=== PATIENT | male | born 1980 | race Two or more races ===

== ENCOUNTER 2024-01-28 08:15 | Outpatient (RCR) | payer BC, SELFPAY | END 2024-05-27 23:59 | disposition home or self-care (01) | PROVIDERS: Visit Provider Nurse Practitioner Family | DX: R10.2 Pelvic and perineal pain (principal); R35.0 Frequency of micturition; Z51.89 Encounter for other specified aftercare | CPT/HCPCS: 97110; 97140; 97162 ==

== ENCOUNTER 2025-08-04 08:54 | Emergency (ER) | payer BC, SELFPAY ==
--- OUTSIDE RECORDS SUMMARY | 2025-08-04 08:58 | XMS_ITS | Clinical Summary ---
Author Organization [facility] Address [address] [place] [id number] Care Team Providers Care Ultrasound Technologist Sonographer Name Role Phone Pennie Reyes MD Primary Care P roshabnamder Allergies No known active allergies Medications escitalopram oxalate (LEXAPRO) 20 mg tabletIndicatio ns:Generalized anxiety disorder Take 1 Tablet (20 mg) by mouth once daily in the morning. 90 Tablet 3 5 Active tiZANidine 2 mg tabletIndicatio ns:Muscle tension pain Take 1-2 Tablets (2-4 mg) by mouth every 8 hours if needed for Muscle Spasm. Take 30 min before PT appointment to help with muscle tension 15 Tablet 5 Active omeprazole (PRILOSEC) 20 mg Delayed-Release capsuleIndicati ons:Cough, unspecified type Take 1 Capsule (20 mg) by mouth once daily before a meal. 90 Capsule 1 5 Active estradioL (ESTRACE) 2 mg tabletIndicatio ns:Gender dysphoria Take 1 Tablet (2 mg) by mouth two times daily. 180 Tablet 1 5 Active estradioL (ESTRACE) 2 mg tabletIndicatio ns:Gender dysphoria Take 1 Tablet (2 mg) by mouth once daily. 90 Tablet 1 5 025 Discontin ued(Reord er (E-cancel not sent)) estradioL (ESTRACE) 2 mg tabletIndicatio ns:Gender dysphoria Take 1 Tablet (2 mg) by mouth once daily. 90 Tablet 5 025 Discontin ued(*Medi cation adjustmen t) Active Problems Problem Noted Date Diagnosed Date Generalized anxiety disorder 08/09/2024 [id number] transgender person 06/24/2023 Overview (06/24/2023): Should have mammograms starting at age 50 and after 5-10 years of hormone therapy Stage 2 chronic kidney disease 06/24/2023 Encounters Date Type Department Care Team Description 08/04/2025 8:35 AM SENIOR MEDICAL TRANSCRIPTIONIST Office Visit [address] [address] Vee Stark PA Gi Problem (feeling a blockage, cannot pass stool since yesterday, feeling urge to go with no success, having pain around anus ) 08/04/2025 Travel 07/27/2025 2:30 PM CDT Ancillary Procedure [address] [address] 07/27/2025 2:00 PM CDT Ancillary Procedure [address] [address] 07/27/2025 Travel 07/19/2025 3:40 PM CDT Office Visit [address] [address] Nancy Mccallum, Breast Problem (two weeks of right breast tenderness); Throat Problem (Sore throat for a few days.); Results (Discussion of lab results.) 07/19/2025 Travel 07/14/2025 7:00 AM CDT Orders Only [address] [address] [place] <No scans attached> 07/14/2025 Travel from Last 3 Months Immunizations Immunization Administration Dates Next Due COVID-19 VACCINE SPIKEVAX (M ODERNA 50MCG/0.5ML) 12YO+ PFS 06/24/2024 COVID-19 vaccine ([employer]-Bio NTech 30mcg/0.3mL) 12YO+ BIVALENT PF, MDV 07/16/2022 COVID-19 vaccine (Pfizer-BioNTech 30mcg/0.3mL) P MD MayraV 12/28/2020,12/07/2020 INFLUENZA, IIV3 PF (AGE >= 6 MO) 06/29/2025,05/30 Imovax 05/25/2011 Influenza Virus, Unspecified 07/17/2021 Influenza, IIV3 (Age >=3 years) 07/17/2021 Influenza, IIV4 06/24/2023,07/24/2022 Rabies Vaccine 05/14/2011,05/11/2011 Tdap 06/24/2023 Family History Medical History Relation Name Comments Good Health Brother 1 Good Health Brother 2 Anxiety disorder Child Hepatitis Mother possibly hepati tis B Other cancer Mother possibly ovaria n Relation Name Status Comments Brother 1 Alive Brother 2 Alive Child Alive Father Alive Mother Alive Social History Tobacco Use Types Packs/Day Years Used Date Smoking Tobacco: Never Smokeless Tobacco: Never Tobacco Cessation:Counseling Given: Yes Alcohol Use Standard Drinks/Week Comments Not Currently 0 (1 standard drink = 0.6 oz pur e alcohol) 2 x year PHQ-2 Answer Date Recorded PHQ-2 TOTAL SCORE 1 11/09/2024 Social Connections Answer Date Recorded Do you often feel lonely or isolated from those around you? 0 04/13/2025 Alcohol Use Answer Date Recorded How often do you have a drink containing alcohol ? 1 07/19/2025 How many drinks containing a lcohol do you have on a typical day when you are drinking? 0 07/19/2025 How often do you have five or more drinks on one occasion? 0 07/19/2025 Financial Resource Strain Answer Date R ecorded Difficulty of Paying Living Expenses 3 04/13/2025 Difficulty of Paying Living Expenses Not on file 04/13/2025 Food Insecurity Answer Date Recorded Do you worry your food will run out before you are able to buy more? 1 04/13/2025 Transportation Needs Answer Date Record ed Does lack of transportation keep you from medica l appointments? 1 04/13/2025 Does lack of transportation keep you from work, meetings or getting things that you need? 1 04/13/2025 Housing Stability Answer Date Recorded What is your housing situation today? 1 04/13/2025 Utilities Answer Date Recorded Do you have trouble paying f or utilities (for example, heat, electricity, water, phone)? 1 04/13/2025 Sex and Gender Information Value Date Recorded Sex Assigned at Male 07/26/2021 11:43 AM CDT Legal Sex Female 11:25 AM CDT Gender Identity Female 06/19/2021 10:03 AM CDT Sexual Orientation Not on file Obstetrics History Last Filed Vital Signs Vital Sign Reading Time Taken Comments Blood Pressure 127/86 08/04/2025 8:09 AM SENIOR MEDICAL TRANSCRIPTIONIST Pulse 82 08/04/2025 8:09 AM SENIOR MEDICAL TRANSCRIPTIONIST Temperature 37.2 C (98.9 F) 07/19/2025 3:52 PM CDT Respiratory Rate 16 09/05/2021 9:21 AM SENIOR MEDICAL TRANSCRIPTIONIST Oxygen Saturation 97% 08/04/2025 8:09 AM SENIOR MEDICAL TRANSCRIPTIONIST Inhaled Oxygen Concentration - - Weight 74.8 kg (165 lb) 08/04/2025 8:09 AM SENIOR MEDICAL TRANSCRIPTIONIST Height 166.5 cm (5' 5.55) 07/19/2025 3:52 PM CD T Body Mass Index 27 07/19/2025 3:52 PM CDT Plan of Treatment Upcoming Encounters Date Type Department Care Team (Late st Contact Info) Description 10/20/2025 8:20 AM SENIOR MEDICAL TRANSCRIPTIONIST Office Visit [facility] [address] [place] [address] Gwen Grant MD [address] [place] [address] Health Maintenance Due Date Last Done Comments Hepatitis B series for 19+ (1 of 3 - 19+ 3-dose series) 1999 HPV series for age 9-45 (1 - 3-dose SCDM series) 2007 HPV series for age 9-45 (1 - 3-dose SCDM series) 2007 Depression screening for age 12+ 11/09/2025 11/09/2024, 06/17/2024, 06/24/2023, Additional history exists BMI (ht and wt on same day) for age 18+ 07/19/2026 07/19/2025, 10/09/2023, 06/24/2023, Additional history exists Lipids for age 35-44 02/21/2028 02/20/2023, 10/14/19 22 Tetanus booster 06/24/2033 06/24/2023 Pap test for age 21-65 12/21/2039 Postp oned from 2001 (Other) RSV vaccine for adults or (1 - 1-dose 75+ series) 2055 HIV for age 15-65 Completed 06/24/2023 Hepatitis C screening for age 18-79 Completed 06/24/2023 Influenza Vaccine Completed 06/29/2025, , 06/24/2023, Additional history exists Pneumococcal series for age 6-49 Aged Out No longer eligible based on patient's age to complete this topic Procedures Procedure Name Priority Date/Time Associated Diagnosis Comments US BREAST UNILATERAL RIGHT LIMITED AKOSUA 07/27/2025 2:22 PM CDT Breast pain, right XR MAMMO PRATEEK BILAT DIAG AKOSUA 07/27/2025 2:14 PM CDT Breast pain, right THROAT RAPID STREP ONLY CLINIC Routine 07/19/2025 4:05 PM CDT Sore throat ESTRADIOL Routine 07/14/2025 7:09 AM CDT Gender dysphoria ANTI HIV 1/2 Routine 06/24/2023 8:51 AM CDT Screening for HIV (human immunodeficiency virus) ANTI HCV Routine 06/24/2023 8:51 AM CDT Need for hepatitis C screening test LIPID PANEL Routine 02/20/2023 8:54 AM CDT Current use of estrogen therapy from Last 3 Months or Most Recently Relevant to Health Maintenance Results * US BREAST UNILATERAL RIGHT LIMITED (07/27/2025 2:22 PM CDT) Anatomical Region Laterality Modality BREASTS, Breast Right Right Ultrasound Narrative 07/27/2025 3:38 PM CDT For Patients: As a result of the Cures Act, medical imaging exams and procedure reports are released immediately into your electronic medical record. You may view this report before your referring provider. If you have questions, please contact your health care provider. RIGHT BREAST ULTRASOUND, 07/27/2025 PLEASE SEE [id number] FOR DIGITAL BILATERAL MAMMOGRAM SAME DAY. us Nancy Mccallum DO US Final Resu lt * XR MAMMO PRATEEK BILAT DIAG (07/27/2025 2:14 PM CDT) Anatomical Region Laterality Modality BREASTS, Breast Left, Breast Right Bilateral Mammography 07/27/2025 2:37 PM CDT Impressions 07/27/2025 3:38 PM CDT No evidence of malignancy. BILATERAL fibroglandular tissue, [id number]. RECOMMENDATIONS: Clinical follow-up. If patient is currently on hormone treatment and has been for more than five consecutive years, then would consider screening mammograms every 2 years. Results and recommendations were discussed with the patient at the time of the exam. BI-RADS Category 2: Benign Dictated by: Tahir Bush MD @07/27/2025 2:37:39 PM/corin PATIENTS: You will also receive a letter with your examination results in an easy to read format. If you have questions about your results, please contact your referring provider. Narrative 07/27/2025 3:38 PM CDT For Patients: As a result of the Cures Act, medical imaging exams and procedure reports are released immediately into your electronic medical record. You may view this report before your referring provider. If you have questions, please contact your health care provider. DIGITAL DIAGNOSTIC BILATERAL MAMMOGRAM USING TOMOSYNTHESIS AND COMPUTER-AIDED DETECTION, 07/27/2025 RIGHT BREAST ULTRASOUND, 07/27/2025 CLINICAL HISTORY: RIGHT breast pain. COMPARISON: None. TECHNIQUE: Digital BILATERAL mammogram in four projections with computer-aided detection. Tomosynthesis was used in this interpretation. Real-time ultrasound imaging of RIGHT breast with imaging documentation. BREAST COMPOSITION: The breasts are heterogeneously dense, which may obscure small masses. FINDINGS: 3D CC/MLO BILATERAL mammogram images submitted. BILATERAL fibroglandular tissue is present without architectural distortion. Fibroglandular tissue is more prominent on the RIGHT. No adenopathy or suspicious calcifications. Targeted RIGHT breast ultrasound performed in the area of concern at 12 o'clock 1 cm from the nipple. Normal fibroglandular tissue is present. No fibrocystic change or mass. us Nancy Mccallum DO MAMMO Final Resu lt * THROAT RAPID STREP ONLY CLINIC (07/19/2025 4:05 PM CDT) Pathologist [facility] POC, GROUP A STREP NOT DETECTED NOT DETECTED 07/19/2025 4:29 PM CDT [facility] Comment: The [employer] [place] [employer] recommends that a throat culture be performed if a rapid group A streptococcus assay yields a negative result. [facility] recommends Streptococcus, Group A culture. Throat SPECIMEN FROM THROAT / Unknown Non-Blood / Unknown 07/19/2025 4:05 PM CDT 07/19/2025 4:11 PM CDT us Nancy Mccallum DO MICROBIOLOGY Final Resu lt Provender [facility] [address] [place] [address], [place] [phone] [facility] [address] [place] [address], [place] [phone] * ESTRADIOL (07/14/2025 7:09 AM CDT) [facility] ESTRADIOL 50 pg/mL 07/15/2025 8:39 AM CDT Provender Comment: Reference Range Female: Follicular Phase: 30-144 Mid-Cycle: 64-357 Luteal Phase: 56-214 Postmenopausal: < or = 31 Reference range established on post-pubertal patient population. No pre-pubertal reference range established using this assay. For any patients for whom low Estradiol levels are anticipated (e.g. males, pre-pubertal children and hypogonadal/post-menopausal females), the [facility] Estradiol, Ultrasensitive, LCMSMS assay is recommended (order code [id number]). Please note: patients being treated with the drug fulvestrant (Faslodex(R)) have demonstrated significant interference in immunoassay methods for estradiol measurement. The cross reactivity could lead to falsely elevated estradiol test results leading to an inappropriate clinical assessment of estrogen status. [facility] order code [id number], Ultrasensitive LC/MS/MS demonstrates negligible cross reactivity with fulvestrant. Blood BLOOD SPECIMEN / Unknown [facility] / Unknown 07/14/2025 7:09 AM CDT 07/14/2025 7:09 AM CDT Nancy Mccallum DO SEND OUTS Final Resu lt Performing Organization Address City/[facility]/ZIP Co de Phone Number Provender [address] [address], [place] [phone] * ANTI HCV (06/24/2023 8:51 AM CDT) HEPATITIS C ANTIBODY Non-Reacti ve Non-React jeff 06/24/2023 9:00 PM CDT [facility] Comment:Please note, per www .CDC.gov: If a patient is known to be at high risk of HCV infection, or is symptomatic, and the physician's suspicion of HCV infection is high, HCV RNA testing is often employed and is of diagnostic value, even after an initial negative anti-HCV test result. Blood BLOOD SPECIMEN / Unknown Venipuncture / Unknown 06/24/2023 8:51 AM CDT 06/24/2023 8:54 AM CDT Pennie Reyes MD SEND OUTS Final Result [facility] [address] [place] [address], * ANTI HIV 1/2 [33799.0] (06/24/2023 8:51 AM CDT) HIV-1/HIV-2 SCREEN Non-Reacti ve Non-Reacti ve 06/24/2023 9:03 PM CDT [facility] Comment:HIV-1 p24 and HIV-1/ HIV-2 Ab Not Detected. Blood BLOOD SPECIMEN / Unknown Venipuncture / Unknown 06/24/2023 8:51 AM CDT 06/24/2023 8:54 AM CDT Pennie Reyes MD SEND OUTS Final Result [facility] [address] [place] [address], [place] * (ABNORMAL) LIPID PANEL (02/20/2023 8:54 AM CDT) [facility] CHOLESTEROL,TOTAL 140 100 - 199 mg/dL 02/20/2023 10:08 AM [facility] TRIGLYCERIDES 122 <150 mg/dL 02/20/2023 10:08 AM [facility] HDL CHOLESTEROL 40(L) >40 mg/dL 10:08 AM [facility] NON-HDL CHOLESTEROL 100 <145 mg/dl 02/20/2023 10:08 AM [facility] CHOL/HDL RATIO 3.50 <4.50 02/20/2023 10:08 AM [facility] LDL CHOLESTEROL 76 <=130 mg/dL 02/20/2023 10:08 AM [facility] VLDL CHOLESTEROL 24 <=30 mg/dL 02/20/2023 10:08 AM [facility] PROVIDER ORDERED STATUS RANDOM 02/20/2023 10:08 AM [facility] Blood BLOOD SPECIMEN / Unknown Venipuncture / Unknown 02/20/2023 8:54 AM CDT 02/20/2023 8:56 AM CDT us Kain Simons MD CHEMISTRY Final Result [facility] [address] [place] [address] from Last 3 Months or Most Recently Relevant to Health Maintenance Insurance [facility] [place] Care Teams Ultrasound Technologist Sonographer Relationship Specialty Start Date End Date Pennie Reyes MD [address] [place] [address] [place] ascencio [id number] PCP - General Family Practice 06/17/24
[2025-08-04 09:00] VITALS: BP 123/80; PULSE 76; RESP 16; TEMP 36.4; O2SAT 99; BMI 28.3
--- NOTE | 2025-08-04 09:23 | CRLHL7_ITS ---
For Patients: As a result of the Century Cures Act, medical imaging exams and procedure reports are released immediately into your electronic medical record. You may view this report before your referring provider. If you have questions, please contact your health care provider. Indication: Abdominal pain, constipation Technique: 2 AP views of the abdomen. Comparison: None. Findings: Moderate stool burden is seen throughout the colon. 6.7 centimeter rectal stool ball. Nonobstructive bowel gas pattern. No large pneumoperitoneum. Visualized lung bases are clear. Impression: Moderate stool burden is seen throughout the colon. 6.7 centimeter rectal stool ball. Nonobstructive bowel gas pattern. Dictated by Adrian Rhodes MD @ 08/04/2025 10:00:14 AM (Electronically Signed)
--- NOTE | 2025-08-04 09:43 | ED.GENADULT ---
HPI - General Adult General Chief complaint: Abdominal Pain Stated complaint: bowel obstruction Time Seen by Provider: 08/04/25 09:15 Source: patient Mode of arrival: ambulatory Limitations: no limitations History of Present Illness HPI narrative: 44-year-old transgender female presenting today with rectal pain and abdominal pain. States that yesterday she was unable to have a bowel movement and had to strain quite a bit. Developed rectal pain in the process. Went to the clinic today and did not really allow the provider to touch her secondary to pain so she was sent here for evaluation. Since last night she has also developed abdominal discomfort located centrally. She does not know the last time was that she passed gas. There is no increased urinary frequency, urgency or dysuria. No nausea or vomiting. No fevers or chills. Past surgical history includes an orchiectomy secondary to gender affirming care. No intra-abdominal surgery. Related Data Home Medications ?Medication ?Instructions ?Recorded ?Confirmed escitalopram oxalate 20 mg tablet 20 mg PO QAM 08/04/25 08/04/25 estradiol 2 mg tablet 2 mg PO BID 08/04/25 08/04/25 omeprazole 20 mg capsule,delayed 20 mg PO DAILY 08/04/25 08/04/25 release Allergies Allergy/AdvReac Type Severity Reaction Status Date / Time No Known Drug Allergies Allergy Verified 08/04/25 09:02 Review of Systems Status of ROS: Reports: 10 or more systems reviewed and unremarkable except as noted in History and below [facility] Social History Smoking Status: Never smoker How often do you have a drink containing alcohol: monthly or less AUDIT-C Alcohol total score: 1 Non-prescribed substance use: denies use Exam Narrative: Exam Narrative: Well-nourished well-developed patient in no acute distress. Alert and oriented. Answers questions appropriately. Mood and affect are appropriate. Thoughts are goal oriented and rational. No tangential or magical thinking noted. Patient speaks in full sentences without needing to catch her breath. HEENT: Normocephalic atraumatic. Pupils are equally round reactive to light. Extraocular muscles are intact. Conjunctivae are moist without any icterus noted. Moist mucous membranes. Cardiovascular: Heart is regular rate and rhythm S1 and S2 are present without any murmurs. Lungs: Clear to auscultation bilaterally no wheezes rhonchi or rales are appreciated. Patient takes deep breaths without any discomfort. Abdomen: Slightly distended, normal bowel sounds. Diffuse discomfort. Extremities: Bilateral lower extremities are without edema. Normal DP and PT pulses. Skin: Well perfused without any obvious rashes. Rectal: Normal rectal tone. No swelling, erythema or fluctuance consistent with abscess formation. No hemorrhoids are present. There is no bleeding. There are no fissures visualized. However, patient becomes acutely uncomfortable with light palpation to the area. Const: Vital Signs, click to edit/add: Vital Signs - 24 hr 08/04/25 09:00 08/04/25 10:21 08/04/25 11:10 Temperature 97.6 F Pulse Rate 76 Pulse Rate [Pulse Oximeter] 76 Respiratory Rate 16 16 Blood Pressure [Ri ght Upper Arm] 123/80 Pulse Oximetry 99 94 94 Oxygen Delivery Me thod Room Air Course Course ED Course: IV established and labs were drawn. Flat and upright x-ray is ordered. Blood work unremarkable. UA unremarkable. X-ray showing moderate stool burden with a 6.7 cm rectal stool ball. No evidence of obstruction. At this time, patient was given Dilaudid, Ativan and topical lidocaine and a rectal disimpaction was attempted. Rectal ball was too far up the rectum for manual disimpaction. We therefore attempted to bring that down by doing a tap water enema. It did not make a difference. At this time discussed doing an aggressive top down clean now for the next 3 days. Vital Signs Vital signs: Initial Vital Signs Temperature 97.6 F 08/04/25 09:00 Temperature Source Temporal Artery Scan 08/04/25 09:00 Pulse Rate 76 08/04/25 09:00 Pulse Rhythm Regular 08/04/25 09:00 Respiratory Rate 16 08/04/25 09:00 Blood Pressure 123/80 08/04/25 09:00 Blood Pressure Mean 94 08/04/25 09:00 Blood Pressure Position Sitting 08/04/25 09:00 Pulse Oximetry 99 08/04/25 09:00 Oxygen Delivery Method Room Air 08/04/25 09:00 Vital Signs Temperature 97.6 F 08/04/25 09:00 Pulse Rate 76 08/04/25 09:00 Respiratory Rate 16 08/04/25 09:00 Blood Pressure 123/80 08/04/25 09:00 Pulse Oximetry 99 08/04/25 09:00 Oxygen Delivery Method Room Air 08/04/25 09:00 Temperature 97.6 F 08/04/25 09:00 Pulse Rate 76 08/04/25 11:10 Respiratory Rate 16 08/04/25 11:10 Blood Pressure 123/80 08/04/25 09:00 Pulse Oximetry 94 08/04/25 11:10 Oxygen Delivery Method Room Air 08/04/25 09:00 Medications Administered Medications: Generic Name Dose Route Start Last Admin Trade Name Freq PRN Reason Stop Dose Admin Lorazepam 0.5 mg 08/04/25 11:55 08/04/25 11:59 Lorazepam 2 Mg/Ml Inj IVP 0.5 mg Q1H PRN Administration Discontinued Medications Generic Name Dose Route Start Last Admin Trade Name Freq PRN Reason Stop Dose Admin Hydromorphone HCl 0.5 mg 08/04/25 10:21 08/04/25 10:44 Hydromorphone 0.5 Mg/0.5 Ml Inj IVP 08/04/25 10:22 0.5 mg ONCE ONE Administration Lidocaine HCl 6 ml 08/04/25 10:21 08/04/25 10:54 Lidocaine Hcl 2 % Jelly (Top) Sterile TOPICAL 08/04/25 10:22 6 ml ONCE ONE Administration Lorazepam 0.5 mg 08/04/25 10:21 08/04/25 10:45 Lorazepam 2 Mg/Ml Inj IVP 08/04/25 10:22 0.5 mg ONCE ONE Administration Medical Decision Making MDM Narrative Medical decision making narrative: 44-year-old with constipation. Oral treatment will be prescribed for the next 3 days. Patient may need to return to the ER for manual disimpaction. Patient's blood work is unremarkable, he does not appear ill. I do not think we are dealing with something such as a toxic megacolon. Lab Data Labs: Lab Results 08/04/25 08/04/25 Range/Units 09:35 10:27 WBC 7.14 (4.50-11.00) K/uL RBC 4.53 (4.30-5.90) m/uL Hgb 13.7 (13.5-17.5) gm/dL Hct 38.6 (37.0-53.0) % MCV 85 (80-100) fL MCH 30 (26-34) pg MCHC 36 (32-36) gm/dL RDW Coeff of Miki 12.6 (11.5-15.5) % Plt Count 262 (140-440) K/uL Neut % (Auto) 76.6 H (42.0-72.0) % Lymph % (Auto) 14.6 L (20-44) % Tift % (Auto) 7.4 (0.0-11.0) % Eos % (Auto) 0.6 (0.0-7.0) % Baso % (Auto) 0.7 (0.0-3.0) % Neut # (Auto) 5.50 (1.7-7.0) K/uL Lymph # (Auto) 1.00 (0.90-2.90) K/uL Tift # (Auto) 0.50 (0.00-0.90) K/UL Eos # (Auto) 0.04 (0.00-0.50) K/uL Baso # (Auto) 0.05 (0.00-0.30) K/uL Abs Immat Gran (auto) 0.01 (0.00-0.30) K/uL Imm/Tot Granulo (auto) 0.1 % Sodium 133 L (135-149) mmol/L Potassium 4.1 (3.6-5.1) mmol/L Chloride 97 (96-114) mmol/L Carbon Dioxide 27 (20-32) mmol/L Anion Gap 9 (7-15) mEq/L BUN 17 (5-24) mg/dL Creatinine 0.9 (0.5-1.5) mg/dL Estimated Creat Clear 87.70 Estimated GFR 108 ml/min Glucose 107 (60-115) mg/dL Lactate 1.0 (0.5-1.9) mmol/L Calcium 8.9 (8.4-10.6) mg/dL Total Bilirubin 0.8 (0.1-1.5) mg/dL Direct Bilirubin 0.2 (0.0-0.5) mg/dL AST 30 (12-35) U/L ALT 31 (4-50) U/L Alkaline Phosphatase 69 (40-150) U/L C-Reactive Protein 1.0 (0.5-1.0) mg/dL Total Protein 7.6 (6.0-8.3) g/dL Albumin 4.4 (3.3-5.0) g/dL Lipase 64 (23-300) U/L Procalcitonin 0.05 (<0.50) ng/mL Urine Color Yellow (Yellow) Urine Appearance Clear (Clear) Urine pH 6.5 (5.0-8.5) Ur Specific [place] 1.015 (1.000-1.030) Urine Protein Negative (Negative) Urine Glucose (UA) Negative (Negative) Urine Ketones 1+ A (Negative) Urine Blood Negative (Negative) Urine Nitrite Negative (Negative) Urine Bilirubin Negative (Negative) Urine Urobilinogen 0.2 (0.2-1.0) Ur Leukocyte Esterase Negative (Negative) Urine RBC 0-2 (0-2) Urine WBC 0-2 (0-5) Ur Squamous Epith Cells None (None-Few) Urine Bacteria Few A (None) Urine Mucus Few A (None) Imaging Data Abdominal x-ray: Attestation: I have reviewed the pertinent imaging results. Radiologist's impression: Technique: 2 AP views of the abdomen. Comparison: None. Findings: Moderate stool burden is seen throughout the colon. 6.7 centimeter rectal stool ball. Nonobstructive bowel gas pattern. No large pneumoperitoneum. Visualized lung bases are clear. Impression: Moderate stool burden is seen throughout the colon. 6.7 centimeter rectal stool ball. Nonobstructive bowel gas pattern. Discharge Plan Discharge Clinical Impression: Constipation Patient Disposition: Home, Self-Care Condition: Stable Additional Instructions: There is a large amount of stool in the rectum and throughout the entire bowel. For the next 3 days you should do the following: Take MiraLax 2-1/2 cap fulls in 16 oz of water 2 times per day. Take one Senna 8.6mg tablet at bedtime. Both senna and MiraLax can be purchased [id number]. This should produce large bowel movements that will initially be painful. If you cannot get the stool to come out, you may return to the emergency room in the next 2-3 days for a manual disimpaction. Once this initial large amount of stool is cleared out, recommend a daily cap full of MiraLax daily for the next month. Prescriptions: No Action omeprazole 20 mg capsule,delayed release(DR/EC) 20 mg PO DAILY estradiol 2 mg tablet 2 mg PO BID escitalopram oxalate 20 mg tablet 20 mg PO QAM Follow Up/Referrals: Provider,Not a Local [Primary Care Provider, Family Practice] Stand Alone Forms: [employer] Info Instructions
[2025-08-04 09:45] LABS: Lactate* 1.0 mmol/L (0.5-1.9)
[2025-08-04 09:46] LABS: Hematocrit* 38.6 % (37.0-53.0); Hemoglobin* 13.7 gm/dL (13.5-17.5); Immature Granulocytes Abs Auto 0.01 K/uL (0.00-0.30); Immature Granulocytes Pct Auto 0.1 %; Mean Corpuscular HGB Conc 36 gm/dL (32-36); Mean Corpuscular Hemoglobin 30 pg (26-34); Mean Corpuscular Volume 85 fL (80-100); RDW Coefficient of Variation % 12.6 % (11.5-15.5); Red Blood Count* 4.53 m/uL (4.30-5.90); White Blood Count* 7.14 K/uL (4.50-11.00)
[2025-08-04 10:02] LABS: Albumin* 4.4 g/dL (3.3-5.0); Chloride* 97 mmol/L (96-114); Lymphocytes Absolute Auto 1.00 K/uL (0.90-2.90); Slide Review Reflex No; Sodium* 133 mmol/L (135-149)
[2025-08-04 10:03] LABS: Potassium* 4.1 mmol/L (3.6-5.1)
[2025-08-04 10:05] LABS: Alanine Aminotransferase* 31 U/L (4-50); Alkaline Phosphatase* 69 U/L (40-150); Anion Gap 9 mEq/L (7-15); Aspartate Amino Transferase* 30 U/L (12-35); Bilirubin Direct* 0.2 mg/dL (0.0-0.5); Bilirubin Total* 0.8 mg/dL (0.1-1.5); Blood Urea Nitrogen* 17 mg/dL (5-24); Carbon Dioxide* 27 mmol/L (20-32); Creatinine* 0.9 mg/dL (0.5-1.5); Est. Creatinine Clearance* 87.70; Estimated Glomerular Filt Rate 108 ml/min; Total Protein* 7.6 g/dL (6.0-8.3)
[2025-08-04 10:06] LABS: Calcium* 8.9 mg/dL (8.4-10.6); Glucose* 107 mg/dL (60-115)
[2025-08-04 10:21] VITALS: O2SAT 94
[2025-08-04 10:23] LABS: Procalcitonin* 0.05 ng/mL (<0.50)
[2025-08-04 10:41] LABS: Appearance Urine Clear (Clear)
[2025-08-04] MEDS: lidocaine HCL 2 % JELLY (TOP) STERILE 6 ML TOPICAL (10:54)
[2025-08-04 11:10] VITALS: PULSE 76; RESP 16; O2SAT 94
[2025-08-04 11:30] VITALS: PULSE 72; RESP 14; O2SAT 91
[2025-08-04 12:00] VITALS: PULSE 82; RESP 14; O2SAT 95
[2025-08-04 12:30] VITALS: PULSE 72; RESP 20; O2SAT 97
== END 2025-08-04 13:15 | disposition home or self-care (01) ==
PROVIDERS: Emergency Provider Family Medicine
DX: K59.00 Constipation, unspecified (principal)
CPT/HCPCS: 36415; 74019; 80048; 80076; 81001; 83605; 83690; 84145; 85025; 86140; 87086; 94761; 96374; 96375; 96376; 99284; J1171; J2060